=== PATIENT | female | born 1980 | race Two or more races ===

== ENCOUNTER 2021-07-29 21:18 | Emergency (ER) | payer MEDICARE, MEDICAID ==
[~2021-07-29] VITALS: Ht 144.8 cm; Wt 41.0 kg
[2021-07-29 21:30] VITALS: BP 122/80
[2021-07-30 01:57] LABS: BASOPHILS % 0.9 % (0.0-2.0); EOSINOPHILS % 0.2 % (0.0-5.0); HEMATOCRIT. 44.2 % (36.0-48.0); LYMPHOCYTES % 28.7 % (20.0-50.0); MEAN CORPUSCULAR HEMOGLOBIN 37.3 pg (28.0-32.0); MEAN CORPUSCULAR VOLUME 109.9 fL (81.0-99.0); MEAN PLATELET VOLUME 8.7 fl (7.4-10.4); MONOCYTES % 5.7 % (2.0-8.0); NEUTROPHILS % 64.5 % (40.0-76.0); PLATELET 162 x1000/uL (130-400); RED BLOOD CELL COUNT 4.02 mill/uL (4.2-5.4); RED CELL DISTRIBUTION WIDTH 13.6 % (11.6-14.6)
[2021-07-30 02:06] LABS: CHLORIDE 113 mEq/L (98-107)
== END 2021-07-30 07:08 | disposition home or self-care (01) ==
LOC: ER 21:18
DX: R55 Syncope and collapse (principal); G80.9 Cerebral palsy, unspecified; Z95.2 Presence of prosthetic heart valve
CPT/HCPCS: 36415; 71045; 80053; 81025; 83880; 84484; 85025; 93005; 99285